=== PATIENT | female | born 1965 | race Caucasian/White ===

== ENCOUNTER → 2016-07-30 | Outpatient (CLI) | payer BC, OTHER ==
[2016-07-30 10:37] LABS: ABSOLUTE BASOPHILS # (AUTO) 0.1 10^3/uL (0.0-0.2); ABSOLUTE EOSINOPHILS # (AUTO) 0.1 10^3/uL (0.0-0.6); ABSOLUTE LYMPHOCYTES (AUTO) 2.3 10^3/uL (0.5-4.7); ABSOLUTE MONOCYTES (AUTO) 0.4 10^3/uL (0.1-1.4); ABSOLUTE NEUT (AUTO) 4.1 10^3/uL (1.7-8.2); BASOPHILS % (AUTO) 1.1 % (0-2); EOSINOPHILS % (AUTO) 1.2 % (0-6); HEMOGLOBIN 14.8 g/dL (12.0-15.5); HGB HCT DIFFERENCE 0.4; LYMPHOCYTES % (AUTO) 33.4 % (13-45); MEAN CORPUSCULAR HEMOGLOBIN 31.1 pg (27.0-33.4); MEAN CORPUSCULAR HGB CONC 33.6 g/dL (32.0-36.0); MEAN CORPUSCULAR VOLUME 93 fl (80-97); MONOCYTES % (AUTO) 5.5 % (3-13); RED BLOOD COUNT 4.74 10^6/uL (3.72-5.28); RED CELL DISTRIBUTION WIDTH 12.7 % (11.5-14.0); SEGMENTED NEUTROPHILS % (AUTO) 58.8 % (42-78)
[2016-07-30 10:54] LABS: ALANINE AMINOTRANSFERASE 27 U/L (9-52); ALBUMIN 4.2 g/dL (3.5-5.0); ALKALINE PHOSPHATASE 72 U/L (38-126); ANION GAP 12 (5-19); ASPARTATE AMINO TRANSFERASE 23 U/L (14-36); BILIRUBIN,DIRECT 0.4 mg/dL (0.0-0.4); BILIRUBIN,TOTAL 0.6 mg/dL (0.2-1.3); BLOOD UREA NITROGEN 17 mg/dL (7-20); CALCIUM 9.6 mg/dL (8.4-10.2); CARBON DIOXIDE 23 mmol/L (22-30); CHLORIDE 108 mmol/L (98-107); CHOLESTEROL 210.92 mg/dL (0-200); CREATININE RESULT 0.84 mg/dL (0.52-1.25); Direct HDL 55 mg/dL (>40); GLUCOSE 83 mg/dL (75-110); POTASSIUM 4.2 mmol/L (3.6-5.0); SODIUM 142.6 mmol/L (137-145); TOTAL PROTEIN 6.7 g/dL (6.3-8.2); TRIGLYCERIDES 118 mg/dL (<150)
[2016-07-30 11:05] LABS: DIRECT LDL 125 mg/dL (<100)
== END ==
LOC: OD 09:29
PROVIDERS: ATTEND Family Medicine
DX: E78.5 Hyperlipidemia, unspecified (principal); Z79.899 Other long term (current) drug therapy
CPT/HCPCS: 36415; 80053; 80061; 84443; 85025

== ENCOUNTER 2016-08-27 09:39 | Emergency (ER) | payer BC, OTHER ==
[2016-08-27] MEDS ORDERED: ONDANSETRON HCL INJ/PF 4 MG/2 ML SDV IV ONE (10:11)
[2016-08-27] MEDS ORDERED: KETOROLAC TROMETHAMINE INJ/PF 30 MG/1 ML SDV IV ONE (10:11)
[2016-08-27] MEDS ORDERED: NORMAL SALINE 1000 ML 1,000 ML IV ONE (10:54)
--- NOTE | 2016-08-27 10:58 | ER Document Report ---
ED GI/ - General Mode of Arrival: Ambulatory Information source: Patient TRAVEL OUTSIDE OF THE [place] IN LAST 30 DAYS: No - HPI Patient complains to provider of: Dysuria, Flank pain Onset: This morning Location: Left flank Associated symptoms: Other - see notes above <CHOCO VIGIL - Last Filed: 08/27/16 10:55> <KAREN HARTMANN - Last Filed: 08/27/16 12:56> - General Chief Complaint: Flank Pain Stated Complaint: FLANK PAIN Time Seen by Provider: 08/27/16 10:11 Notes: 51 year old female with history of kidney stones presents to the ED complaining of left flank pain that started this morning. Patient is additionally complaining of pain with urination, and denies any fever. (CHOCO VIGIL) - Related Data Allergies/Adverse Reactions: fentanyl [Fentanyl] Allergy (Intermediate, Verified 08/27/16 09:46) Past Medical History - General Information source: Patient - Social History Smoking Status: Current Every Day Smoker Chew tobacco use (# tins/day): Yes - 1 pk Frequency of alcohol use: None Drug Abuse: Marijuana Family History: Reviewed & Not Pertinent Patient has suicidal ideation: No Patient has homicidal ideation: No Renal/ Medical History: Reports: Hx Kidney Stones. Denies: Hx Peritoneal Dialysis Past Surgical History: Reports: Hx Genitourinary Surgery - kidney stones removed from bladder, Hx Hysterectomy, Hx Orthopedic Surgery - LEft ulnar nerve , right knee - Immunizations Hx Diphtheria, Pertussis, Tetanus Vaccination: No - unk <CHOCO VIGIL - Last Filed: 08/27/16 10:55> Review of Systems - Review of Systems Constitutional: No symptoms reported. denies: Fever EENT: No symptoms reported Cardiovascular: No symptoms reported Respiratory: No symptoms reported Gastrointestinal: No symptoms reported Genitourinary: See HPI, Dysuria, Flank pain - left Female Genitourinary: No symptoms reported Musculoskeletal: No symptoms reported Skin: No symptoms reported Hematologic/Lymphatic: No symptoms reported Neurological/Psychological: No symptoms reported -: Yes All other systems reviewed and negative <CHOCO VIGIL - Last Filed: 08/27/16 10:55> Physical Exam - General General appearance: Alert In distress: None - HEENT Head: Normocephalic, Atraumatic Eyes: Normal Extraocular movements intact: Yes Pupils: PERRL - Respiratory Respiratory status: No respiratory distress Breath sounds: Normal - Cardiovascular Rhythm: Regular Heart sounds: Normal auscultation - Abdominal Inspection: Normal - Back Back: CVA tenderness - left. No: Normal - Extremities General upper extremity: Normal inspection, Normal ROM General lower extremity: Normal inspection, Normal ROM - Neurological Neuro grossly intact: Yes Cognition: Normal Orientation: AAOx4 [place] Coma Scale Eye Opening: Spontaneous [place] Coma Scale Verbal: Oriented [place] Coma Scale Motor: Obeys Commands [place] Coma Scale Total: 15 Speech: Normal - Psychological Associated symptoms: Normal affect, Normal mood - Skin Skin Temperature: Warm Skin Moisture: Dry Skin Color: Normal <CHOCO VIGIL - Last Filed: 08/27/16 10:55> Course <CHOCO VIGIL - Last Filed: 08/27/16 10:55> - Laboratory Result Diagrams: 08/27/16 10:55 08/27/16 10:55 - Diagnostic Test Radiology reviewed: Reports reviewed <KAREN HARTMANN - Last Filed: 08/27/16 12:56> - Re-evaluation Re-evalutation: 08/27/16 12:55 Patient is feeling much better after pain medication and nausea medicine. She has been given Rocephin for probable UTI. Urine has been sent for culture. CT showing a 3 mm stone at the left UVJ which is likely the source of the patient' s pain. The patient's pain is controlled at this time. She is able to take p.o. She is to follow-up with her doctor regarding her kidney stone and culture results. Understands and agrees with plan. Stable for discharge. ( KAREN HARTMANN) - Vital Signs Vital signs: Temp Pulse Resp BP Pulse Ox 93 97 08/27/16 09:46 08/27/16 09:46 - Laboratory Laboratory results interpreted by me: 08/27/16 10:18 Ur Leukocyte Esterase LARGE H Discharge <CHOCO VIGIL - Last Filed: 08/27/16 10:55> <KAREN HARTMANN - Last Filed: 08/27/16 12:56> - Discharge Clinical Impression: Ureteral stone Condition: Stable Disposition: HOME, SELF-CARE Instructions: Kidney Stone ([facility]), Urinary Tract Infection ([facility]) Additional Instructions: Your urine has been sent for culture. Please follow-up with your doctor regarding the results. You can also call [phone]. Prescriptions: Cephalexin Monohydrate [Keflex 500 mg Capsule] 500 mg PO QID #30 capsule Ondansetron [Zofran Odt 4 mg Tablet] 1 - 2 tab PO Q4H PRN #15 tab.rapdis PRN Reason: For Nausea/Vomiting Oxycodone HCl/Acetaminophen [Percocet 5-325 mg Tablet] 1 tab PO Q4H PRN #20 tablet PRN Reason: Tamsulosin HCl [Flomax 0.4 mg Cap.sr] 0.4 mg PO DAILY #14 cap.sr.24h Referrals: LIANA CAST MD [Primary Care Provider] - Follow up in 3-5 days Scribe Attestation: 08/27/16 12:53 I personally performed the services described in the documentation, reviewed and edited the documentation which was dictated to the scribe in my presence, and it accurately records my words and actions. (KAREN HARTMANN) Scribe Documentation - Scribe Written by Jinae:: Deb Perez, 08/27/2016 1058 acting as scribe for :: Jose <CHOCO VIGIL - Last Filed: 08/27/16 10:55>
[2016-08-27 11:13] LABS: ABSOLUTE BASOPHILS # (AUTO) 0.1 10^3/uL (0.0-0.2); ABSOLUTE EOSINOPHILS # (AUTO) 0.1 10^3/uL (0.0-0.6); ABSOLUTE LYMPHOCYTES (AUTO) 1.9 10^3/uL (0.5-4.7); ABSOLUTE MONOCYTES (AUTO) 0.3 10^3/uL (0.1-1.4); ABSOLUTE NEUT (AUTO) 4.2 10^3/uL (1.7-8.2); BASOPHILS % (AUTO) 1.3 % (0-2); EOSINOPHILS % (AUTO) 1.2 % (0-6); HEMATOCRIT 42.3 % (36.0-47.0); HEMOGLOBIN 14.4 g/dL (12.0-15.5); HGB HCT DIFFERENCE 0.9; LYMPHOCYTES % (AUTO) 28.4 % (13-45); MEAN CORPUSCULAR HEMOGLOBIN 31.2 pg (27.0-33.4); MEAN CORPUSCULAR HGB CONC 33.9 g/dL (32.0-36.0); MEAN CORPUSCULAR VOLUME 92 fl (80-97); MONOCYTES % (AUTO) 5.1 % (3-13); RED CELL DISTRIBUTION WIDTH 13.1 % (11.5-14.0); WHITE BLOOD COUNT 6.6 10^3/uL (4.0-10.5)
[2016-08-27 11:17] LABS: APPEARANCE,URINE SLIGHTLY-CLOUDY; BILIRUBIN,URINE NEGATIVE (NEGATIVE); GLUCOSE, URINE NEGATIVE (NEGATIVE); KETONES,URINE NEGATIVE (NEGATIVE); LEUKOCYTE ESTERASE,URINE LARGE (NEGATIVE); NITRITE,URINE NEGATIVE (NEGATIVE); PROTEIN,URINE NEGATIVE (NEGATIVE); URINE SPECIFIC GRAVITY 1.019; UROBILINOGEN,URINE NEGATIVE mg/dL (<2.0)
[2016-08-27 11:31] LABS: ALANINE AMINOTRANSFERASE 31 U/L (9-52); ALBUMIN 4.1 g/dL (3.5-5.0); ALKALINE PHOSPHATASE 70 U/L (38-126); ANION GAP 8 (5-19); ASPARTATE AMINO TRANSFERASE 25 U/L (14-36); BILIRUBIN,DIRECT 0.3 mg/dL (0.0-0.4); BILIRUBIN,TOTAL 0.4 mg/dL (0.2-1.3); BLOOD UREA NITROGEN 16 mg/dL (7-20); CALCIUM 9.3 mg/dL (8.4-10.2); CARBON DIOXIDE 27 mmol/L (22-30); CHLORIDE 107 mmol/L (98-107); GLUCOSE 87 mg/dL (75-110); POTASSIUM 4.3 mmol/L (3.6-5.0); SODIUM 141.6 mmol/L (137-145); TOTAL PROTEIN 6.6 g/dL (6.3-8.2)
[2016-08-27] MEDS ORDERED: CEFTRIAXONE 1 GM/D5W RTU 50 ML IV ONE (11:33)
[2016-08-27] MEDS ORDERED: MORPHINE SULFATE 10 MG/ML INJ IV ONE (11:47)
--- NOTE | 2016-08-27 12:01 | RADIOLOGY REPORT (SQ) ---
EXAM DESCRIPTION: CT LTD RENAL STONE PROTOCOL ON COMPLETED DATE/TIME: 08/27/2016 10:48 am REASON FOR STUDY: flank, pain, N/v COMPARISON: CT abdomen pelvis 02/20/2013, 02/15/2012 TECHNIQUE: CT scan of the abdomen and pelvis performed without intravenous or oral contrast. Images reviewed with lung, soft tissue, and bone windows. Reconstructed coronal and sagittal MPR images revi ewed. All images stored on PACS. All CT scanners at this facility use dose modulation, iterative reconstruction, and/or weight based d osing when appropriate to reduce radiation dose to as low as reasonably achievable (ALARA). [facility]: Dose Right [facility]: CareDose [facility]: Dose Right [facility]: Teradose 4D [facility]: Smart Technologies RADIATION DOSE: Up-to-date CT equipment and radiation dose reduction techniques were employed. CTDIv ol: 8.2 mGy. DLP: 417 mGy-cm.mGy. LIMITATIONS: None. FINDINGS: There is very mild left hydronephrosis best shown on coronal image 40. In the left distal ureter about 5 cm from the ureterovesical junction, there is a small 3 mm calcification which may be a distal left ureteral stone. This is best shown on coronal image 36. Elsewhere in the left kidney, a 5 mm upper pole intrarenal nonobstructive stone is present. No left cortical cysts or gross masses. LOWER CHEST: No significant findings. No nodules or infiltrates. NON-CONTRASTED LIVER, SPLEEN, ADRENALS: Evaluation limited by lack of IV contrast. No identified sign ificant masses. PANCREAS: No masses. No peripancreatic inflammatory changes. GALLBLADDER: No identified stones by CT criteria. No inflammatory changes to suggest cholecystitis. RIGHT KIDNEY AND URETER: No suspicious masses. Assessment limited by lack of IV contrast. No signif icant calcifications. No hydronephrosis or hydroureter. LEFT KIDNEY AND URETER: As above. AORTA AND RETROPERITONEUM: No aneurysm. No retroperitoneal masses or adenopathy. BOWEL AND PERITONEAL CAVITY: No obvious masses or inflammatory changes. No free fluid. APPENDIX: Surgically absent. PELVIS, BLADDER, AND ABDOMINAL WALL:No abnormal masses. No free fluid. Bladder normal. Post hysterect jocelyn BONES: No significant findings. OTHER: No other significant finding. IMPRESSION: Mild left hydronephrosis with questionable 3 mm distal left ureteral stone. TECHNICAL DOCUMENTATION: JOB ID: [id number] Quality ID # [id number]: Final reports with documentation of one or more dose reduction techniques (e.g., Au tomated exposure control, adjustment of the mA and/or kV according to patient size, use of iterative reconstruction technique) 2010 [employer]- All Rights Reserved
[2016-08-27] MEDS ORDERED: TAMSULOSIN HCL 0.4 MG CAP.SR.24H PO ONE (12:47)
[2016-08-27 13:27] VITALS: BP 101/55
== END 2016-08-27 13:28 | disposition home or self-care (01) ==
LOC: ER 09:39
DX: N13.2 Hydronephrosis with renal and ureteral calculous obstruction (principal); R10.9 Unspecified abdominal pain; R30.0 Dysuria; F17.200 Nicotine dependence, unspecified, uncomplicated; Z98.890 Other specified postprocedural states; Z88.5 Allergy status to narcotic agent
CPT/HCPCS: 99284; 96361; 96375; 96365; 36415; 87086; 85025; 80053; 81001; 76380; J1885; J2270; J2405; J7030; J0696

== ENCOUNTER → 2017-02-01 | Outpatient (CLI) | payer BC, OTHER ==
[2017-02-01 12:42] LABS: ABSOLUTE BASOPHILS # (AUTO) 0.1 10^3/uL (0.0-0.2); ABSOLUTE EOSINOPHILS # (AUTO) 0.1 10^3/uL (0.0-0.6); ABSOLUTE LYMPHOCYTES (AUTO) 2.3 10^3/uL (0.5-4.7); ABSOLUTE MONOCYTES (AUTO) 0.4 10^3/uL (0.1-1.4); ABSOLUTE NEUT (AUTO) 6.9 10^3/uL (1.7-8.2); BASOPHILS % (AUTO) 0.6 % (0-2); EOSINOPHILS % (AUTO) 0.6 % (0-6); HEMATOCRIT 44.5 % (36.0-47.0); HEMOGLOBIN 15.5 g/dL (12.0-15.5); LYMPHOCYTES % (AUTO) 23.2 % (13-45); MEAN CORPUSCULAR HEMOGLOBIN 31.9 pg (27.0-33.4); MEAN CORPUSCULAR VOLUME 91 fl (80-97); MONOCYTES % (AUTO) 4.3 % (3-13); RED BLOOD COUNT 4.88 10^6/uL (3.72-5.28); RED CELL DISTRIBUTION WIDTH 12.4 % (11.5-14.0); SEGMENTED NEUTROPHILS % (AUTO) 71.3 % (42-78); WHITE BLOOD COUNT 9.7 10^3/uL (4.0-10.5)
[2017-02-01 13:06] LABS: ALANINE AMINOTRANSFERASE 27 U/L (9-52); ALBUMIN 4.7 g/dL (3.5-5.0); ALKALINE PHOSPHATASE 82 U/L (38-126); ANION GAP 14 (5-19); ASPARTATE AMINO TRANSFERASE 24 U/L (14-36); BILIRUBIN,DIRECT 0.3 mg/dL (0.0-0.4); BILIRUBIN,TOTAL 0.5 mg/dL (0.2-1.3); BLOOD UREA NITROGEN 13 mg/dL (7-20); CALCIUM 9.9 mg/dL (8.4-10.2); CARBON DIOXIDE 27 mmol/L (22-30); CHLORIDE 105 mmol/L (98-107); CHOLESTEROL 237.07 mg/dL (0-200); CREATININE RESULT 0.84 mg/dL (0.52-1.25); Direct HDL 55 mg/dL (>40); GLUCOSE 77 mg/dL (75-110); POTASSIUM 3.7 mmol/L (3.6-5.0); TRIGLYCERIDES 234 mg/dL (<150)
[2017-02-01 13:17] LABS: DIRECT LDL 156 mg/dL (<100)
[2017-02-01 13:18] LABS: VLDL CHOLESTEROL 46.8 mg/dL (10-31)
[2017-02-02 06:39] LABS: HEPATITIS C VIRUS AB <0.1 s/co ratio (0.0-0.9)
== END ==
LOC: OD 11:27
PROVIDERS: ATTEND Family Medicine
DX: Z11.59 Encounter for screening for other viral diseases (principal); E78.5 Hyperlipidemia, unspecified; Z79.899 Other long term (current) drug therapy
CPT/HCPCS: 36415; 80053; 80061; 84443; 85025; 86803; 86804

== ENCOUNTER → 2017-02-17 | Outpatient (CLI) | payer BC, OTHER ==
--- NOTE | 2017-02-17 14:09 | WOMENS IMAGING REPORT ---
EXAM DESCRIPTION: BONE DENSITY HIP/SPINE COMPLETED DATE/TIME: 02/17/2017 1:48 pm REASON FOR STUDY: DISORDER OF BONE; SCREENING MAMMO Z12.31 ENCNTR SCREEN MAMMOGRAM FOR MALIGNANT NE OPLASM OF AURELIA M85.9 DISORDER OF BONE DENSITY AND STRUCTURE, UNSPECIFIED COMPARISON: 02/15/2015. TECHNIQUE: Dual-Energy X-ray Absorptiometry (DEXA) of the AP Spine and Hip. LIMITATIONS: None. FINDINGS: LUMBAR SPINE: The bone mineral density (BMD) measured from L1-L4 in the AP projection correlates with a T-score of -1.3, which is osteopenia as defined by the World Health Organization. HIP: The bone mineral density (BMD) measured in the left hip correlates with a T-score of -1.5, which is o steopenia as defined by the World Health Organization. IMPRESSION: 1. LUMBAR SPINE: OSTEOPENIA. 2. HIP: OSTEOPENIA. COMMENT: The World Health Organization defines low BMD as follows: T-score: Normal: Greater than -1.0 Osteopenia: Between -1.0 and -2.5 Osteoporosis: Less than -2.5 without fractures Established osteoporosis: Less than -2.5 with fractures In general, you may wish to consider: Diagnosis Treatment Follow-up DEXA Normal BMD Prevention 2-3 years Osteopenia Prevention/Therapy 1-2 years Osteoporosis Therapy Yearly TECHNICAL DOCUMENTATION: JOB ID: [id number]- All Rights Reserved
--- NOTE | 2017-02-17 15:21 | WOMENS IMAGING REPORT ---
EXAM DESCRIPTION: 3D SCREENING MAMMO BILAT COMPLETED DATE/TIME: 02/17/2017 1:47 pm REASON FOR STUDY: DISORDER OF BONE; SCREENING MAMMO Z12.31 ENCNTR SCREEN MAMMOGRAM FOR MALIGNANT NE OPLASM OF AURELIA M85.9 DISORDER OF BONE DENSITY AND STRUCTURE, UNSPECIFIED COMPARISON: 02/15/2015 and 07/03/2013. TECHNIQUE: Standard craniocaudal and mediolateral oblique views of each breast recorded using digita l acquisition and breast tomosynthesis. LIMITATIONS: None. FINDINGS: No masses, calcifications or architectural distortion. No areas of suspicion. Read with the assistance of CAD. .[facility] - R2 Cenova Version 1.3 .[facility] Imaging - R2 Cenova Version 1.3 .[facility] - R2 Cenova Version 2.4 .[facility] [place] R2 Cenova Version 2.4 .[facility] - R2 International [employer] Manager Version 9.2 IMPRESSION: NORMAL MAMMOGRAM. BIRADS 1. BREAST DENSITY: c. The breasts are heterogeneously dense, which may obscure small masses. BIRAD: 1 NEGATIVE RECOMMENDATION: ROUTINE SCREENING COMMENT: The patient has been notified of the results by letter per SA requirements. Additional no tification policies are in place for contacting patient with suspicious or incomplete findings. Quality ID #[id number]: The [employer] recommends an annual screening mammogram for women aged 40 years or over. This facility utilizes a reminder system to ensure that all patients receive reminder letters, and/or direct phone calls for appointments. This includes reminders for routine scr eening mammograms, diagnostic mammograms, or other Breast Imaging Interventions when appropriate. Th is patient will be placed in the appropriate reminder system. The [employer] (ACR) has developed recommendations for screening MRI of the breast s in certain patient populations, to be used in conjunction with mammography. Breast MRI surveillanc e may be appropriate for women with more than 20% lifetime risk of developing breast cancer as deter mined by genetic testing, significant family history of the disease, or history of mantle radiation f or Hodgkins Disease. ACR Practice Guidelines 2008. DBT Technology DBT is a type of tomographic mammography. With conventional mammography, overlapping breast tissue ma y make lesions difficult to detect, even with good compression. DBT uses an x-ray tube that rotates a round the breast, taking images at different angles. These images are then combined to create thin sl ices of the breast that the radiologist can view as a 3D reconstruction. The [employer] unit can perform full-field digital mammograms (2D imaging); or DBT (3D imaging); or both, in a combination mode that quickly performs both the mammogram and the tomosynthesis scan while the breast is still compressed. PQRS 6045F: Fluoroscopic imaging is not utilized for breast tomosynthesis. TECHNICAL DOCUMENTATION: FINDING NUMBER: (1) ASSESSMENT: (1) JOB ID: [id number] [employer]- All Rights Reserved
== END ==
LOC: WI 12:55
PROVIDERS: ATTEND Family Medicine
DX: Z12.31 Encounter for screening mammogram for malignant neoplasm of breast (principal); E28.319 Asymptomatic premature menopause; M85.88 Other specified disorders of bone density and structure, other site
CPT/HCPCS: 77063; 77080; G0202; 77067

== ENCOUNTER → 2017-07-30 | Outpatient (CLI) | payer BC, OTHER ==
[2017-07-30 08:55] LABS: ABSOLUTE BASOPHILS # (AUTO) 0.1 10^3/uL (0.0-0.2); ABSOLUTE EOSINOPHILS # (AUTO) 0.1 10^3/uL (0.0-0.6); ABSOLUTE LYMPHOCYTES (AUTO) 2.3 10^3/uL (0.5-4.7); ABSOLUTE MONOCYTES (AUTO) 0.4 10^3/uL (0.1-1.4); ABSOLUTE NEUT (AUTO) 3.6 10^3/uL (1.7-8.2); EOSINOPHILS % (AUTO) 1.7 % (0-6); HEMATOCRIT 46.5 % (36.0-47.0); HEMOGLOBIN 15.9 g/dL (12.0-15.5); MEAN CORPUSCULAR HEMOGLOBIN 31.7 pg (27.0-33.4); MEAN CORPUSCULAR HGB CONC 34.2 g/dL (32.0-36.0); MEAN CORPUSCULAR VOLUME 93 fl (80-97); MONOCYTES % (AUTO) 5.6 % (3-13); PLATELET COUNT 172 10^3/uL (150-450); RED BLOOD COUNT 5.02 10^6/uL (3.72-5.28); RED CELL DISTRIBUTION WIDTH 12.6 % (11.5-14.0); SEGMENTED NEUTROPHILS % (AUTO) 55.7 % (42-78); TOTAL CELLS COUNTED % (AUTO) 100 %; WHITE BLOOD COUNT 6.4 10^3/uL (4.0-10.5)
[2017-07-30 09:30] LABS: ALANINE AMINOTRANSFERASE 32 U/L (9-52); ALBUMIN 4.3 g/dL (3.5-5.0); ALKALINE PHOSPHATASE 70 U/L (38-126); ANION GAP 12 (5-19); ASPARTATE AMINO TRANSFERASE 22 U/L (14-36); BILIRUBIN,DIRECT 0.3 mg/dL (0.0-0.4); BILIRUBIN,TOTAL 0.3 mg/dL (0.2-1.3); BLOOD UREA NITROGEN 12 mg/dL (7-20); CARBON DIOXIDE 27 mmol/L (22-30); CHLORIDE 107 mmol/L (98-107); CHOLESTEROL 250.92 mg/dL (0-200); GLUCOSE 114 mg/dL (75-110); POTASSIUM 4.6 mmol/L (3.6-5.0); SODIUM 146.3 mmol/L (137-145); TOTAL PROTEIN 6.7 g/dL (6.3-8.2); TRIGLYCERIDES 204 mg/dL (<150)
[2017-07-30 09:43] LABS: DIRECT LDL 162 mg/dL (<100)
[2017-07-30 09:47] LABS: VLDL CHOLESTEROL 40.8 mg/dL (10-31)
== END ==
LOC: OD 07:54
PROVIDERS: ATTEND Family Medicine
DX: E78.5 Hyperlipidemia, unspecified (principal); Z79.899 Other long term (current) drug therapy
CPT/HCPCS: 36415; 80053; 80061; 85025

== ENCOUNTER → 2018-02-18 | Outpatient (CLI) | payer BC, OTHER ==
--- NOTE | 2018-02-18 13:40 | WOMENS IMAGING REPORT ---
EXAM DESCRIPTION: 3D SCREENING MAMMO BILAT COMPLETED DATE/TIME: 02/18/2018 10:56 am REASON FOR STUDY: BILATERAL SCREENING MAMMO 3D/Z12.31 Z12.31 ENCNTR SCREEN MAMMOGRAM FOR MALIGNANT NEOPLASM OF AURELIA COMPARISON: Multiple since 2008 TECHNIQUE: Standard craniocaudal and mediolateral oblique views of each breast recorded using digita l acquisition and breast tomosynthesis. LIMITATIONS: None. FINDINGS: No masses, calcifications or architectural distortion. No areas of suspicion. Read with the assistance of CAD. .[facility] - R2 Cenova Version 1.3 .[facility] Imaging - R2 Cenova Version 1.3 .[facility] Imaging - R2 Cenova Version 2.4 .[facility] [place] - R2 Cenova Version 2.4 .[facility] - R2 Customer Experience Analyst Version 9.2 IMPRESSION: NORMAL MAMMOGRAM. BIRADS 1. BREAST DENSITY: c. The breasts are heterogeneously dense, which may obscure small masses. BIRAD: 1 NEGATIVE RECOMMENDATION: ROUTINE SCREENING Please continue yearly bilateral screening mammography/tomosynthesis in February 2019 COMMENT: The patient has been notified of the results by letter per SA requirements. Additional no tification policies are in place for contacting patient with suspicious or incomplete findings. Quality ID #[id number]: The [employer] recommends an annual screening mammogram for women aged 40 years or over. This facility utilizes a reminder system to ensure that all patients receive reminder letters, and/or direct phone calls for appointments. This includes reminders for routine scr eening mammograms, diagnostic mammograms, or other Breast Imaging Interventions when appropriate. Th is patient will be placed in the appropriate reminder system. The [employer] (ACR) has developed recommendations for screening MRI of the breast s in certain patient populations, to be used in conjunction with mammography. Breast MRI surveillanc e may be appropriate for women with more than 20% lifetime risk of developing breast cancer as deter mined by genetic testing, significant family history of the disease, or history of mantle radiation f or Hodgkins Disease. ACR Practice Guidelines 2008. DBT Technology DBT is a type of tomographic mammography. With conventional mammography, overlapping breast tissue ma y make lesions difficult to detect, even with good compression. DBT uses an x-ray tube that rotates a round the breast, taking images at different angles. These images are then combined to create thin sl ices of the breast that the radiologist can view as a 3D reconstruction. The [employer] unit can perform full-field digital mammograms (2D imaging); or DBT (3D imaging); or both, in a combination mode that quickly performs both the mammogram and the tomosynthesis scan while the breast is still compressed. PQRS 6045F: Fluoroscopic imaging is not utilized for breast tomosynthesis. TECHNICAL DOCUMENTATION: FINDING NUMBER: (1) ASSESSMENT: (1) JOB ID: [id number] [employer]- All Rights Reserved Reading location - IP/workstation name: [facility]-2
== END ==
LOC: WI 10:15
PROVIDERS: ATTEND Family Medicine
DX: Z12.31 Encounter for screening mammogram for malignant neoplasm of breast (principal)
CPT/HCPCS: 77063; 77067

== ENCOUNTER 2019-02-25 10:38 | Emergency (ER) | payer OTHER, BC ==
[2019-02-25] MEDS ORDERED: MECLIZINE HCL 25 MG TABLET PO ONE (11:19)
--- NOTE | 2019-02-25 11:21 | ER Document Report ---
ED Medical Screen (RME) - General Chief Complaint: Dizziness Stated Complaint: DIZZINESS/POSSIBLE VERTIGO Time Seen by Provider: 02/25/19 11:17 Primary Care Provider: RAMIRO LY MD [Primary Care Provider] - Follow up as needed Mode of Arrival: Ambulatory Information source: Patient Notes: This 53-year-old female with history of vertigo presents with complaints of extreme dizziness that started yesterday. Reports she usually has right positional vertigo. Yesterday she rolled over in bed and when Spinning she started vomiting. Denies chest pain shortness of breath. Reports she took Zofran prior to arrival. Also reports her gave her some Dramamine prior to arrival and is not alleviated the symptoms. I have greeted and performed a rapid initial assessment of this patient. A comprehensive ED assessment and evaluation of the patient, analysis of test results and completion of the medical decision making process will be conducted by additional ED providers. Dictation of this chart was performed using voice recognition software; therefore, there may be some unintended grammatical errors. TRAVEL OUTSIDE OF THE [place] IN LAST 30 DAYS: No - Related Data Allergies/Adverse Reactions: fentanyl [Fentanyl] Allergy (Intermediate, Verified 02/25/19 11:16) Home Medications: zofran. dramamine Past Medical History - Social History Chew tobacco use (# tins/day): No Frequency of alcohol use: None Drug Abuse: None Renal/ Medical History: Reports: Hx Kidney Stones. Denies: Hx Peritoneal Dialysis Past Surgical History: Reports: Hx Genitourinary Surgery - kidney stones removed from bladder, Hx Hysterectomy, Hx Orthopedic Surgery - LEft ulnar nerve, right knee - Immunizations Hx Diphtheria, Pertussis, Tetanus Vaccination: No - unk Physical Exam - Vital signs Vitals: Temp Pulse Resp BP Pulse Ox 98.3 F 105 H 20 153/82 H 98 02/25/19 10:52 02/25/19 10:52 02/25/19 10:52 02/25/19 10:52 02/25/19 10:52 Course - Vital Signs Vital signs: Temp Pulse Resp BP Pulse Ox 98.3 F 105 H 20 153/82 H 98 02/25/19 11:16 02/25/19 11:16 02/25/19 11:16 02/25/19 11:16 02/25/19 11:16 Doctor's Discharge - Discharge Referrals: RAMIRO LY MD [Primary Care Provider] - Follow up as needed
[2019-02-25 12:04] LABS: ABSOLUTE LYMPHOCYTES (AUTO) 2.3 10^3/uL (0.5-4.7); ABSOLUTE MONOCYTES (AUTO) 0.3 10^3/uL (0.1-1.4); EOSINOPHILS % (AUTO) 0.7 % (0-6); RED CELL DISTRIBUTION WIDTH 12.6 % (11.5-14.0); TOTAL CELLS COUNTED % (AUTO) 100 %
[2019-02-25 12:09] LABS: ABSOLUTE BASOPHILS # (AUTO) 0.1 10^3/uL (0.0-0.2); ABSOLUTE NEUT (AUTO) 3.9 10^3/uL (1.7-8.2); HEMOGLOBIN 16.8 g/dL (12.0-15.5); LYMPHOCYTES % (AUTO) 34.9 % (13-45); MEAN CORPUSCULAR HEMOGLOBIN 31.6 pg (27.0-33.4); MEAN CORPUSCULAR HGB CONC 34.3 g/dL (32.0-36.0); MEAN CORPUSCULAR VOLUME 92 fl (80-97); MONOCYTES % (AUTO) 4.7 % (3-13); PLATELET COUNT 195 10^3/uL (150-450); RED BLOOD COUNT 5.32 10^6/uL (3.72-5.28); SEGMENTED NEUTROPHILS % (AUTO) 58.7 % (42-78); WHITE BLOOD COUNT 6.7 10^3/uL (4.0-10.5)
[2019-02-25 12:09] LABS: APPEARANCE,URINE SLIGHTLY-CLOUDY; BILIRUBIN,URINE NEGATIVE (NEGATIVE); COLOR,URINE YELLOW; GLUCOSE, URINE NEGATIVE (NEGATIVE); KETONES,URINE TRACE mg/dL (NEGATIVE); LEUKOCYTE ESTERASE,URINE MODERATE (NEGATIVE); NITRITE,URINE NEGATIVE (NEGATIVE); PROTEIN,URINE NEGATIVE (NEGATIVE); URINE SPECIFIC GRAVITY 1.019
--- NOTE | 2019-02-25 14:51 | EKG REPORT ---
SEVERITY:- NORMAL ECG - SINUS RHYTHM : Confirmed by: Randy Neves MD 25-Feb-2019 14:51:01
[2019-02-25] MEDS ORDERED: NORMAL SALINE 1000 ML 1,000 ML IV ONE (15:26)
[2019-02-25] MEDS ORDERED: LORAZEPAM INJ 2 MG/1 ML VIAL IV ONE (15:27)
--- NOTE | 2019-02-25 15:30 | ER Document Report ---
ED General - General Chief Complaint: Dizziness Stated Complaint: DIZZINESS/POSSIBLE VERTIGO Time Seen by Provider: 02/25/19 11:17 Primary Care Provider: RAMIRO LY MD [ACTIVE STAFF] - Follow up as needed Mode of Arrival: Ambulatory TRAVEL OUTSIDE OF THE [place] IN LAST 30 DAYS: No - Related Data Allergies/Adverse Reactions: fentanyl [Fentanyl] Allergy (Intermediate, Verified 02/25/19 11:16) Home Medications: zofran. dramamine Past Medical History - General Information source: Patient - Social History Smoking Status: Former Smoker Chew tobacco use (# tins/day): No Frequency of alcohol use: None Drug Abuse: None Family History: Reviewed & Not Pertinent Patient has suicidal ideation: No Patient has homicidal ideation: No Renal/ Medical History: Reports: Hx Kidney Stones. Denies: Hx Peritoneal Dialysis Past Surgical History: Reports: Hx Genitourinary Surgery - kidney stones removed from bladder, Hx Hysterectomy, Hx Orthopedic Surgery - LEft ulnar nerve, right knee - Immunizations Hx Diphtheria, Pertussis, Tetanus Vaccination: No - unk Physical Exam - Vital signs Vitals: Temp Pulse Resp BP Pulse Ox 98.3 F 105 H 20 153/82 H 98 02/25/19 10:52 02/25/19 10:52 02/25/19 10:52 02/25/19 10:52 02/25/19 10:52 Patient presents [facility] department complaining of vertigo for the past 2 days. She says she rolled over in bed 2 nights ago and started having vertigo. She describes a spinning sensation which is worse with movement and better with rest. Nausea vomiting with this is able to tolerate a few sips of water. Any headaches or abnormal vision. Her speech has been clear she denies any numbness or weakness in extremities chest pain shortness of breath abdominal pain or diarrhea symptoms are similar to what she had in the past no recent URI symptoms or ear pain Past medical history is negative for diabetes or hypertension. Social history smokes is drink alcohol. Social history is noncontributory. Review of systems pertinent positives and negatives in HPI otherwise all the systems were reviewed and acutely negative PHYSICIAN EXAM -vital signs are noted triage note and note from triage reviewed GENERAL: Well-appearing, well-nourished and in _no acute distress HEAD: Atraumatic, normocephalic. EYES: Pupils equal round and reactive to light, extraocular movements intact, 1- 2 beat lateral nystagmus sclera anicteric, conjunctiva are normal. ENT: nares patent, oropharynx clear without exudates. Slightly dry mucous membranes. NECK: supple without lymphadenopathy no meningeal signs LUNGS: Breath sounds clear to auscultation bilaterally and equal. No wheezes rales or rhonchi. HEART: Regular rate and rhythm without murmurs ABDOMEN: Soft, nontender, normoactive bowel sounds. EXTREMITIES: No deformity, no edema. NEUROLOGICAL: Alert and oriented x4. Cranial nerves he has symmetrical smile facies and shoulder shrug. His motor strength is 5/5 bilaterally in the upper and lower extremities. Toes downgoing. Sensation is intact to light touch is a negative Romberg and gait was moderately ataxic with this by me however she sa ys this is improved from previous PSYCH: Normal mood, normal affect. SKIN: Warm, Dry, normal turgor, no rashes or lesions noted. Differential diagnosis is benign positional vertigo dehydration abnormal electrolytes BACK-nontender in the midline Course - Re-evaluation Re-evalutation: 02/25/19 17:20 80 patient is remained stable continues to have a nonfocal neurologic exam she was given a dose of Antivert with only minimal relief of her symptoms. She was given a liter normal saline and half milligram Ativan. On repeat exam she felt significantly better she has had no nausea vomiting. I watch the patient ambulate difficulty. Decision-making patient presents with appears to be peripheral vertigo. She looks well and can be discharged home I discussed results of laboratory findings and diagnostic test with patien t/family. The treatment plan was explained and I reviewed the discharge instructions with them. Questions were answered. The patient/family verbalizes understanding Dictation was done using voice recognition software. There may be some grammatical errors which are unintentional - Vital Signs Vital signs: Temp Pulse Resp BP Pulse Ox 98.3 F 68 16 134/61 H 95 02/25/19 15:10 02/25/19 15:10 02/25/19 15:10 02/25/19 15:10 02/25/19 15:10 - Laboratory Result Diagrams: 02/25/19 11:47 Laboratory results interpreted by me: 02/25/19 02/25/19 11:41 11:47 RBC 5.32 H Hgb 16.8 H Hct 49.0 H Urine Ketones TRACE H Urine Urobilinogen 2.0 H Ur Leukocyte Esterase MODERATE H 02/25/19 15:33 Urine was noted she denies any dysuria but she is has had some mild frequency and thinks her urine might have been malodorous 02/25/19 17:19 - EKG Interpretation by Me Additional EKG results interpreted by me: 02/25/19 15:33 EKG shows a normal sinus rhythm and normal axis and QRS and no nonspecific ackerman es Discharge - Discharge Clinical Impression: Vertigo UTI (urinary tract infection) Qualifiers: Urinary tract infection type: acute cystitis Disposition: HOME, SELF-CARE Instructions: Nitrofurantoin ([facility]), Vertigo ([facility]) Additional Instructions: Please review the discharge instructions, they will tell you about your disease/injury and what you need to return to the ED for Return to the ED if you feel worse or can follow-up with your family doctor Avoid rapid movement or bending. Return to the ED if you are too dizzy to walk Drink plenty of fluids Follow-up with your family doctor in 3 to 5 days if not better otherwise in 2 weeks to recheck your blood pressure BP 1 your blood pressure was elevated today needs to be rechecked again in 1 to 2 weeks to determine if need to be on medication or have your medications adjusted. Untreated hypertension can cause heart attack stroke and kidney failure Prescriptions: Meclizine HCl [Antivert 25 mg Tablet] 25 mg PO QID PRN #20 tablet PRN Reason: Nitrofurantoin/Nitrofuran Mac [Macrobid 100 mg Capsule] 1 tab PO BID #10 capsule Nitrofurantoin/Nitrofuran Mac [Macrobid 100 mg Capsule] 1 tab PO BID #20 capsule Ondansetron HCl [Zofran 4 mg Tablet] 1 tab PO Q4H PRN #10 tablet PRN Reason: Forms: Elevated Blood Pressure, Parent Work Note Referrals: RAMIRO LY MD [ACTIVE STAFF] - Follow up as needed
[2019-02-25] MEDS ORDERED: NITROFURANTOIN MONOHYD/M-CRYST 100 MG CAPSULE PO ONE (17:29)
[2019-02-25 18:26] VITALS: BP 132/64
== END 2019-02-25 18:25 | disposition home or self-care (01) ==
LOC: ER 10:38
DX: R42 Dizziness and giddiness (principal); N30.00 Acute cystitis without hematuria; R11.2 Nausea with vomiting, unspecified; Z79.899 Other long term (current) drug therapy; Z88.6 Allergy status to analgesic agent; Z88.5 Allergy status to narcotic agent; Z87.891 Personal history of nicotine dependence
CPT/HCPCS: 93005; 36415; 85025; 81001; 84484; 93010; J2060; J7030; J8499; 96361; 96374; 99284

== ENCOUNTER → 2019-03-03 | Outpatient (CLI) | payer OTHER, BC ==
--- NOTE | 2019-03-03 11:28 | WOMENS IMAGING REPORT ---
EXAM DESCRIPTION: 3D SCREENING MAMMO BILAT COMPLETED DATE/TIME: 03/03/2019 9:49 am REASON FOR STUDY: ENCNTR SCREEN MAMMOGRAM FOR MALIGNANT NEOPLASM OF BREAST Z12.31 ENCNTR SCREEN RADHA MOGRAM FOR MALIGNANT NEOPLASM OF AURELIA COMPARISON: 2014 EXAM PARAMETERS: Views: Standard craniocaudal and mediolateral oblique views of each breast recorded using digital acquisition and breast tomosynthesis. Read with the assistance of CAD. .[facility] - [employer] Rate Examiner Version 9.2 LIMITATIONS: None. FINDINGS: No suspicious masses, suspicious calcifications or architectural distortion. No areas of c oncern. IMPRESSION: NEGATIVE MAMMOGRAM. BIRADS 1. BREAST DENSITY: c. The breasts are heterogeneously dense, which may obscure small masses. BIRAD: ASSESSMENT: 1 NEGATIVE RECOMMENDATION: ROUTINE SCREENING COMMENT: The patient has been notified of the results by letter per MQSA requirements. Additional no tification policies are in place for contacting patient with suspicious or incomplete findings. Quality ID #[id number]: [employer] recommends an annual screening mammogram for women aged 40 years or over. This facility utilizes a reminder system to ensure that all patients receive reminder letters, and/or direct phone calls for appointments. This includes reminders for routine scr eening mammograms, diagnostic mammograms, or other Breast Imaging Interventions when appropriate. Th is patient will be placed in the appropriate reminder system. TECHNICAL DOCUMENTATION: FINDING NUMBER: (1) ASSESSMENT: (1) JOB ID: [id number] [employer]- All Rights Reserved Reading location - IP/workstation name: [email or web address]
== END ==
LOC: WI 09:16
PROVIDERS: ATTEND Family Medicine
DX: Z12.31 Encounter for screening mammogram for malignant neoplasm of breast (principal)
CPT/HCPCS: 77063; 77067

== ENCOUNTER → 2020-02-19 | Outpatient (CLI) | payer OTHER, BC ==
[2020-02-19 11:38] LABS: ABSOLUTE BASOPHILS # (AUTO) 0.1 10^3/uL (0.0-0.2); ABSOLUTE EOSINOPHILS # (AUTO) 0.1 10^3/uL (0.0-0.6); ABSOLUTE LYMPHOCYTES (AUTO) 2.2 10^3/uL (0.5-4.7); ABSOLUTE MONOCYTES (AUTO) 0.3 10^3/uL (0.1-1.4); ABSOLUTE NEUT (AUTO) 3.8 10^3/uL (1.7-8.2); BASOPHILS % (AUTO) 1.1 % (0-2); EOSINOPHILS % (AUTO) 1.6 % (0-6); HEMATOCRIT 41.8 % (36.0-47.0); HEMOGLOBIN 14.7 g/dL (12.0-15.5); LYMPHOCYTES % (AUTO) 33.5 % (13-45); MEAN CORPUSCULAR HEMOGLOBIN 32.3 pg (27.0-33.4); MEAN CORPUSCULAR HGB CONC 35.1 g/dL (32.0-36.0); MEAN CORPUSCULAR VOLUME 92 fl (80-97); MONOCYTES % (AUTO) 5.3 % (3-13); PLATELET COUNT 183 10^3/uL (150-450); RED BLOOD COUNT 4.55 10^6/uL (3.72-5.28); RED CELL DISTRIBUTION WIDTH 12.5 % (11.5-14.0); SEGMENTED NEUTROPHILS % (AUTO) 58.5 % (42-78); TOTAL CELLS COUNTED % (AUTO) 100 %; WHITE BLOOD COUNT 6.5 10^3/uL (4.0-10.5)
[2020-02-19 11:58] LABS: URINE AMPHETAMINES SCREEN NEGATIVE; URINE BARBITURATES SCREEN NEGATIVE; URINE BENZODIAZEPINES SCREEN NEGATIVE; URINE COCAINE SCREEN NEGATIVE; URINE METHADONE SCREEN NEGATIVE; URINE PHENCYCLIDINE SCREEN NEGATIVE
[2020-02-19 12:00] LABS: ALBUMIN 4.1 g/dL (3.5-5.0); ALKALINE PHOSPHATASE 71 U/L (38-126); ANION GAP 9 (5-19); ASPARTATE AMINO TRANSFERASE 23 U/L (14-36); BILIRUBIN,DIRECT 0.1 mg/dL (0.0-0.4); BILIRUBIN,TOTAL 0.5 mg/dL (0.2-1.3); BLOOD UREA NITROGEN 14 mg/dL (7-20); CALCIUM 9.5 mg/dL (8.4-10.2); CARBON DIOXIDE 26 mmol/L (22-30); CHLORIDE 105 mmol/L (98-107); CHOLESTEROL 224.47 mg/dL (0-200); GLUCOSE 93 mg/dL (75-110); POTASSIUM 4.4 mmol/L (3.6-5.0); TOTAL PROTEIN 6.4 g/dL (6.3-8.2); TRIGLYCERIDES 142 mg/dL (<150)
[2020-02-19 12:08] LABS: URINE MARIJUANA (THC) SCREEN UNCONFIRMED POSITIVE
[2020-02-19 12:17] LABS: DIRECT LDL 162 mg/dL (<100)
== END ==
LOC: OD 10:30
PROVIDERS: ATTEND Family Medicine
DX: G25.0 Essential tremor (principal); G89.4 Chronic pain syndrome; Z13.1 Encounter for screening for diabetes mellitus; Z13.0 Encounter for screening for diseases of the blood and blood-forming organs and certain disorders involving the immune mechanism; Z13.6 Encounter for screening for cardiovascular disorders
CPT/HCPCS: 36415; 80053; 80061; 80307; 84443; 85025